=== PATIENT | female | born 2000 | race Caucasian/White ===

== ENCOUNTER 2020-04-03 16:41 | Emergency (ER) | payer OTHER ==
[~2020-04-03] VITALS: Ht 154.9 cm; Wt 55.8 kg
== END 2020-04-03 17:53 | disposition home or self-care (01) ==
LOC: ER 16:41
DX: S61.521A Laceration with foreign body of right wrist, initial encounter (principal); W26.0XXA Contact with knife, initial encounter; Y93.89 Activity, other specified; Y92.69 Other specified industrial and construction area as the place of occurrence of the external cause; Y99.8 Other external cause status

== ENCOUNTER 2020-04-13 11:46 | Emergency (ER) | payer OTHER ==
[~2020-04-13] VITALS: Ht 154.9 cm; Wt 55.8 kg
== END 2020-04-13 13:04 | disposition home or self-care (01) ==
LOC: ER 11:46
DX: Z48.02 Encounter for removal of sutures (principal)